=== PATIENT | male | born 1970 ===

== ENCOUNTER → 2021-03-10 15:59 | Outpatient (ROUT) | payer OTHER, SELFPAY ==
[2021-03-10 18:10] LABS: COVID19 -Nasal RAPID POSITIVE (Negative)
== END ==
PROVIDERS: Visit Provider Family Medicine
DX: U07.1 COVID-19 (principal); Z20.822 Contact with and (suspected) exposure to COVID-19
CPT/HCPCS: 87635

== ENCOUNTER → 2021-08-02 12:15 | Outpatient (CLI) | payer OTHER, SELFPAY ==
--- NOTE | 2021-08-02 | DI.RAD.S_ITS ---
PROCEDURE: XR NASAL BONES MIN 3V INDICATIONS: Unspecified injury of nose, initial encounter TECHNIQUE: 3 views of the nasal bones acquired. COMPARISON: None. FINDINGS: Bones: No fractures or dislocations. Nasal septum is midline. Normal nasociliary nerve grooves are noted. Soft tissues: No suspicious soft tissue calcifications. IMPRESSION: No displaced nasal bone fracture. Dictated by: Callie Sepulveda MD, PhD on 08/02/2021 at 15:54 Approved by: Callie Sepulveda MD, PhD on 08/02/2021 at 15:54
== END ==
PROVIDERS: PCP Family Medicine; Referring Provider Family Medicine; Visit Provider Family Medicine
DX: S09.92XA Unspecified injury of nose, initial encounter (principal)
CPT/HCPCS: 70160

== ENCOUNTER → 2023-04-09 11:36 | Outpatient (CLI) | payer OTHER, SELFPAY | PROVIDERS: PCP Family Medicine; Referring Provider Family Medicine; Visit Provider Family Medicine | DX: E55.9 Vitamin D deficiency, unspecified (principal); E03.9 Hypothyroidism, unspecified | CPT/HCPCS: 80053; 80061; 82306; 84153; 84403; 84443; 85025 ==

== ENCOUNTER → 2023-07-04 15:43 | Outpatient (ROUT) | payer OTHER, SELFPAY ==
[2023-07-04 16:34] LABS: Free T3, Triiodothyronine Free 4.11 pg/mL (2.77-5.27); Free T4, Direct Thyroxine 1.19 ng/dL (0.78-2.19)
[2023-07-04 16:47] LABS: Thyroid Stimulating Hormone 1.43 uIU/mL (0.47-4.68)
[2023-07-04 17:18] LABS: Vitamin D 25 Hydroxy (D3) 53.3 ng/mL (30.0-100.0)
== END ==
PROVIDERS: PCP Family Medicine; Visit Provider Family Medicine
DX: E55.9 Vitamin D deficiency, unspecified (principal); E03.9 Hypothyroidism, unspecified
CPT/HCPCS: 82306; 84439; 84443; 84481